=== PATIENT | female | born 1955 | race Two or more races ===

== ENCOUNTER 2021-09-04 22:23 | Emergency (ER) | payer BC, MEDICARE ==
[~2021-09-04] VITALS: Ht 162.6 cm; Wt 85.7 kg
[2021-09-05] VITALS: BP 153/78
== END 2021-09-05 00:28 | disposition home or self-care (01) ==
LOC: ER 22:25
DX: L76.21 Postprocedural hemorrhage of skin and subcutaneous tissue following a dermatologic procedure (principal); I10 Essential (primary) hypertension; E78.5 Hyperlipidemia, unspecified